=== PATIENT | male | born 2000 | race Asian ===

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

== ENCOUNTER 2023-08-05 22:52 | Emergency (ER) | payer OTHER ==
[~2023-08-05] VITALS: Ht 175.3 cm; Wt 56.7 kg
[2023-08-05 23:03] VITALS: BP 124/72
[2023-08-06] MEDS ORDERED: PROC5 PO (01:14)
== END 2023-08-06 01:22 | disposition home or self-care (01) ==
LOC: ER 22:52
DX: T40.711A Poisoning by cannabis, accidental (unintentional), initial encounter (principal); R11.2 Nausea with vomiting, unspecified; Z88.0 Allergy status to penicillin; Z79.899 Other long term (current) drug therapy
CPT/HCPCS: 99283; Q0164